=== PATIENT | female | born 1980 | race Caucasian/White ===

== ENCOUNTER → 2016-05-31 | Outpatient (CLI) | payer OTHER ==
[2016-05-31 10:48] LABS: HEMATOCRIT 39.5 % (37.0-47.0); HEMOGLOBIN 13.5 g/dL (12.0-16.0); MEAN CORPUSCULAR HEMOGLOBIN 30.2 PG (27-31); MEAN CORPUSCULAR HGB CONC 34.2 g/dL (33-37); MEAN PLATELET VOLUME 9.4 FL (7.4-12.2); RDW COEFFICIENT OF VARIATION 13.5 % (11.5-14.5); RED BLOOD COUNT 4.47 10^6/uL (4.20-5.40); WHITE BLOOD COUNT 11.33 10^3/uL (4.8-10.8)
== END ==
LOC: LAB 09:31
PROVIDERS: ATTEND Family Medicine
DX: Z36 Encounter for antenatal screening of mother (principal); O99.012 Anemia complicating pregnancy, second trimester; D50.9 Iron deficiency anemia, unspecified; Z3A.28 28 weeks gestation of pregnancy
CPT/HCPCS: 36415; 82728; 82950; 83540; 83550; 84443; 85027

== ENCOUNTER → 2016-07-26 | Outpatient (CLI) | payer OTHER | LOC: MOB LAB 11:27 | PROVIDERS: ATTEND Family Medicine | DX: Z36 Encounter for antenatal screening of mother (principal); Z3A.36 36 weeks gestation of pregnancy | CPT/HCPCS: 87150 ==

== ENCOUNTER 2016-08-16 06:03 | Inpatient (IN) | payer OTHER ==
[~2016-08-16 06:03] MED LIST: CITRIC ACID/SODIUM CITRATE 30 ML CUP PO ONE; CefOXitin Inj 2 GM in Sodium Chloride 0.9% 100 ML IV ONE; Famotidine Inj 20 MG in Normal Saline Flush 10 ML IVP ONE; LIDOCAINE W/ SODIUM BICARB 0.5 ML SYR SUBD PRN; Lactated Ringers 1,000 ML PRIMARY IV ONE; Metoclopramide Inj 10 MG/2 ML VIAL IV ONE; NORMAL SALINE 10 ML SYRINGE FLUSH IVP PRN
[2016-08-16] MEDS ORDERED: Lactated Ringers 1,000 ML PRIMARY IV SCH ×2 (06:15→07:00)
[2016-08-16] MEDS ORDERED: Oxytocin 20 Units + LR 1,000 ML IV SCH ×2 (06:15→09:45)
[2016-08-16] MEDS ORDERED: NORMAL SALINE 10 ML SYRINGE FLUSH IVP PRN ×2 (06:48→09:45)
[2016-08-16] MEDS ORDERED: HYDROmorphone 2 MG/1 ML IVP PRN (06:48)
[2016-08-16] MEDS ORDERED: ONDANSETRON 4 MG/2 ML VIAL IVP PRN ×2 (06:48→09:45)
[2016-08-16] MEDS ORDERED: fentaNYL Inj 100 MCG/2 ML VIAL IVP PRN (06:48)
[2016-08-16] MEDS ORDERED: PROMETHAZINE 25 MG/1 ML VIAL IM PRN (06:48)
[2016-08-16 07:02] LABS: HEMATOCRIT 38.8 % (37.0-47.0); HEMOGLOBIN 13.3 g/dL (12.0-16.0); MEAN CORPUSCULAR HEMOGLOBIN 29.7 PG (27-31); MEAN CORPUSCULAR HGB CONC 34.3 g/dL (33-37); MEAN CORPUSCULAR VOLUME 86.6 FL (81-99); MEAN PLATELET VOLUME 9.5 FL (7.4-12.2); RED BLOOD COUNT 4.48 10^6/uL (4.20-5.40)
[2016-08-16] MEDS ORDERED: Oxytocin 20 Units + LR 1,000 ML IV ONE (07:18)
[2016-08-16] MEDS ORDERED: ePHEDrine Inj 50 MG/ML AMP ONE (07:18)
[2016-08-16] MEDS ORDERED: Lactated Ringers 1,000 ML PRIMARY IV ONE (08:10)
[2016-08-16] MEDS ORDERED: Sodium Chloride 0.9% vial 10 ML ONE (08:26)
[2016-08-16] MEDS ORDERED: PHENYLEPHRINE 10,000 MCG/1 ML VIAL ONE (08:26)
--- NOTE | 2016-08-16 09:16 | OB.OP.NOTE ---
Operative Report Surgeon: Jewell Clancy MD Final Assembler: Erick Bernardo MD Anesthesia Type: Regional Anesthesia Provider: Brenden Kessler CRNA Surgery Date: 08/16/16 Preoperative Diagnosis: Previous section Postoperative Diagnosis: same, delivered. Moderate peritoneal adhesions Procedure: Repeat section Complications: none Estimated Blood Loss (mL): 700 Urine Output (mL): 200 Fluids: 1300 cc of LR Indications: The patient has had 2 previous sections and is not a candidate for a trial of labor after . She is requesting repeat section. Findings: normal male , in cephalic presentation. Light meconium noted at AROM. Description of Procedure: The patient was taken to the operating room where spinal anesthesia was found to be adequate. She was then prepared and draped in the normal sterile fashion in the dorsal supine position with a leftward tilt. A Pfannenstiel skin incision was then made with the scalpel and carried through to the underlying layer of fascia with Bovie. The fascia was incised in the midline and the incision extended laterally with the Bovie. The superior aspect of the fascial incision was then grasped with Enzo clamps, elevated and the underlying rectus muscles dissected off bluntly and with the Bovie. Attention was then turned to the inferior aspect of this incision which in a similar fashion was grasped with Enzo clamps and the rectus muscles dissected off both bluntly and with the Bovie. The rectus muscle was then in the midline, and the peritoneum identified, tented up, and entered in blunt fashion. The peritoneal incision was then extended superiorly and inferiorly with good visualization of the bladder. Adhesions of the peritoneium to the right side of the uterus were noted and reduced with the Bovie, taking care not to injure the bladder. The Emiliano retractor was then inserted and the vesicouterine peritoneum was identified. The lower uterine segment incised in the transverse fashion with the scalpel. The uterine incision was then extended laterally in a blunt fashion. Artificial rupture of membranes was completed with return of light meconium-stained fluid. The 's head was delivered atraumatically. The nose and mouth were suctioned with the bulb suction and the cord clamped and cut. The infant was handed off to the awaiting nurse. Cord gases and cord blood were sent for analysis. The placenta was then removed manually; the uterus exteriorized, and cleared of all clots and debris. The uterine incision was repaired with 0 Vicryl in a running, locked fashion. A second layer of the same suture was used to obtain excellent hemostasis. The peritoneal cavity was then copiously irrigated with warm saline. The uterus was returned to the abdomen. The paracolic gutters were copiously irrigated with warm saline and a second look at the uterine incision continued to reveal excellent hemostasis. The peritoneum was closed with 3-0 Vicryl. The fascia was reapproximated with 0 PDS in a running fashion. The subcutaneous space was irrigated copiously with warm saline and then closed first with 3-0 Vicryl and then more superficially with Insorb absorbable sutures. The skin was reapproximated with Steri-Strips and a Silverlon dressing applied. Fundal massage was completed with no clots in vaginal vault. The patient tolerated the procedure well. Sponge, lap, and needle counts were correct x2. Ancef was given preoperatively less than one hour prior to incision time. The patient was taken to the recovery room in stable condition.
[2016-08-16] MEDS ORDERED: DIPH,PERTUSS,TET(ADACEL) VAC/PF 0.5 ML (Tdap) IM SCH (09:45)
[2016-08-16] MEDS ORDERED: Methylergonovine Tab 0.2 MG TAB PO PRN (09:45)
[2016-08-16] MEDS ORDERED: LANOLIN HPA 40 GM TUBE TOPICAL PRN (09:45)
[2016-08-16] MEDS ORDERED: Famotidine Inj 20 MG in Normal Saline Flush 10 ML IVP PRN (09:45)
[2016-08-16] MEDS ORDERED: Nalbuphine Inj 20 MG/ML Ampule IVP PRN (09:45)
[2016-08-16] MEDS ORDERED: HYDROmorphone 2 MG/1 ML IV PRN (09:45)
[2016-08-16] MEDS ORDERED: diphenhydrAMINE 50 MG/1 ML VIAL IV PRN (09:45)
[2016-08-16] MEDS ORDERED: CALCIUM CARBONATE 500 MG (TUMS) CHEWABLE TABLET PO PRN (09:45)
[2016-08-16] MEDS ORDERED: Naloxone Inj 0.01 MG, Sodium Chloride 0.9% vial 1 ML IVP PRN ×2 (09:45)
[2016-08-16] MEDS ORDERED: METHYLERGONOVINE MALEATE 0.2 MG/1 ML VIAL IM PRN (09:45)
[2016-08-16] MEDS ORDERED: OXYTOCIN 10 UNIT/1 ML IM ONE (09:45)
[2016-08-16] MEDS ORDERED: MISOPROSTOL 200 MCG TABLET RECTAL ONE (09:45)
[2016-08-16] MEDS ORDERED: diphenhydrAMINE 25 MG CAPSULE PO PRN (09:45)
[2016-08-16] MEDS ORDERED: Carboprost Inj 250 MCG/ML AMP IM PRN (09:45)
[2016-08-16] MEDS: oxyCODONE-ACETAMINOPHEN 5-325 TAB PO PRN ×4 (09:59→22:36)
[2016-08-16] MEDS: KETOROLAC 30 MG/1 ML VIAL IVP PRN ×3 (10:00→22:36)
[2016-08-16] MEDS ORDERED: IPRATROPIUM/ALBUTEROL SULFATE 3 ML NEB NEB ONE (11:10)
[2016-08-16] MEDS: D5-LR 1,000 ML PRIMARY IV SCH ×2 (12:59→18:31)
[2016-08-17] MEDS: oxyCODONE-ACETAMINOPHEN 5-325 TAB PO PRN ×6 (02:34→23:56)
[2016-08-17] MEDS: D5-LR 1,000 ML PRIMARY IV SCH ×2 (03:43→15:13)
[2016-08-17] MEDS: KETOROLAC 30 MG/1 ML VIAL IVP PRN ×2 (04:34→12:04)
[2016-08-17 05:37] LABS: HEMATOCRIT 31.5 % (37.0-47.0); HEMOGLOBIN 10.5 g/dL (12.0-16.0); MEAN CORPUSCULAR HEMOGLOBIN 29.5 PG (27-31); MEAN CORPUSCULAR HGB CONC 33.3 g/dL (33-37); MEAN CORPUSCULAR VOLUME 88.5 FL (81-99); MEAN PLATELET VOLUME 9.6 FL (7.4-12.2); RED BLOOD COUNT 3.56 10^6/uL (4.20-5.40)
[2016-08-17] MEDS: Senna/Docusate Tab 1 TAB TAB PO SCH ×2 (08:22→20:28)
[2016-08-17] MEDS: Prenatal Multivitamin Tab 1 TAB TAB PO SCH (08:22)
--- NOTE | 2016-08-17 09:09 | CRNA.PROGR ---
Anesthesia Note Anesthesia Progress Note: Anesthesia Post OP Note Pt is sitting up in bed, nursing her new born. She states that the SAB has completely resolved and she denies any residual issues from the anesthetic. Pain is now well under control. She has been tolerating a regular diet well. Current VS stable. Vital Signs (Last 8 hours) Temp Pulse Resp BP Pulse Ox 08/17/16 09:00 98.2 F 96 18 118/7 99 08/17/16 04:50 97.8 F 85 16 100/53 95
--- NOTE | 2016-08-17 12:08 | OB.PROGRES ---
Subjective Post Op Day: 1 Pain Management: PO Heath Catheter: No Flatus: Yes Diet: Regular Feeding Method: Exculsively Ambulating: Yes Concerns / Additional Information: C/o right shoulder pain that started last noc. Does feel a little better today, just still feels 'crampy.' Does have a lot of uterine cramping with breast feeding. Mild to moderate lochia. Breast feeding going well. Objective - General General Appearance: POSITIVE: No Acute Distress, Cooperative - Cardiovacular Cardiovascular Exam: POSITIVE: RRR, No Murmur Extremities: Negative Melissa's - Bilaterally - Respiratory Respiratory Exam: POSITIVE: Clear to Auscultation - Bilaterally, Breathing Non Labored - Abdomen Bowel Sounds: Present Abdominal Wound Assessment: Silverlone Dressing - Fundus/Lochia/Perineum Uterus Consistency: Firm Uterus Position: POSITIVE: Below Umbilicus Assesstment / Plan (1) Status post repeat low transverse section Current Visit: Yes Status: Acute Assessment / Plan: -routine cares. -very mild post-op anemia--will continue slow release iron at home. -will refer to PT for right shoulder pain, probably referred from air in abd from surgery. -breast feeding well. -rh positive. -possible d/c home in 1-2 days.
--- NOTE | 2016-08-17 15:58 | PTI REPORT ---
Thank you for the referral of Genesis Ledesma. She was seen on 08/17/16 for an inpatient evaluation secondary to right shoulder pain following . SUBJECTIVE: The patient is a 35-year-old female. The patient reports she has never had any right shoulder pain following any of her past three c-sections. She states she noticed it this morning and it feels very excruciating like a sharp stabbing feeling. She denies any radicular type symptoms. PAST MEDICAL HISTORY: Past medical history can be found in the patient's medical record. 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 She was negative for any type of neural tension for the median, ulnar, or musculocutaneous or radial nerve. She reports pain at its worse at 9/10 on the verbal analog scale (0=no pain, 10= worst pain). No differences in sensation. Bilateral upper extremity strength was not formally tested at this time. She was negative for any type of rotator cuff involvement. ASSESSMENT: This patient is having right shoulder pain following which is indicative of trapped air in the abdomen referring pain into the shoulder. Problem List: Right shoulder pain Physical Therapy Goals: To be met by discharge from inpatient: Patient will have decreased subjective level of pain by 25%. Patient will be instructed in home activities to reduce her pain. TREATMENT PLAN: Patient will be seen on a PRN basis for pain relief. INITIAL TREATMENT: Treatment today consisted of the initial evaluation followed by educating the patient on the referral patterns of trapped air following a . Home remedies include application of moist heat as well as getting up and ambulating to help better pass excessive gas. She received an application of moist heat x30 minutes to the right shoulder followed by neuromuscular reeducation in the form of Kinesio tape to help for pain. SUSANA
[2016-08-17] MEDS: IBUPROFEN 800 MG TABLET PO PRN (18:31)
[2016-08-17 22:05] VITALS: RESP 16
[2016-08-18] MEDS: IBUPROFEN 800 MG TABLET PO PRN ×2 (02:59→11:00)
[2016-08-18] MEDS: oxyCODONE-ACETAMINOPHEN 5-325 TAB PO PRN ×3 (03:58→12:06)
[2016-08-18] MEDS: Senna/Docusate Tab 1 TAB TAB PO SCH (08:13)
[2016-08-18] MEDS: Prenatal Multivitamin Tab 1 TAB TAB PO SCH (08:14)
[2016-08-18 08:43] VITALS: TEMP 97.7
--- NOTE | 2016-08-18 08:54 | DI ---
VENOUS DOPPLER ULTRASOUND OF THE RIGHT LOWER EXTREMITY, 08/17/2016 12:26 PM: Clinical History: Right lower trauma knee pain and swelling Previous Exam: None. Technique: 2D real-time imaging is supplemented with color Doppler ultrasound. Compression and augmen tation maneuvers were performed. The long saphenous vein is normal. Reading: No evidence of deep venous thrombosis. ICD9: { } { }
--- NOTE | 2016-08-21 09:28 | DCSUMMARY ---
Hospitalization Summary Admit Date: 08/16/16 Discharge Date: 08/18/16 Primary Diagnosis:: Previous section Primary Surgery and Date: Repeat section, 08/16/16 Delivery Type: Hospital Course: Ms. Ledesma has a h/o previous section x 2, with 1 vaginal delivery with her first child. She is now 39 weeks and is requesting repeat section. / Postop Complications: The pt did very well post-operatively. She did c/o right shoulder pain on POD # 1 and this improved greatly with physical therapy treatment. She also c/o right calf pain on POD #1, her u/s for DVT was read as negative. Otherwise, she had no other issues. Complications: Baby did very well breast feeding. He had normal voids and stools. It was noted , however, on DOL #1, that he would get hypoxic with crying to the high 70s-low 80s. The NICU in [place] was consulted, for details of this conversation and the plan, please see the baby's note. Otherwise, there were no complications. Exam - Vitals Vital Signs: Vital Signs Temperature 97.7 F Temperature Source Oral Pulse Rate [Pulse Oximeter] 110 Pulse Rate 125 Respiratory Rate 16 Blood Pressure [Right Arm] 116/64 Blood Pressure 107/68 Pulse Ox 97 Oxygen Delivery Method Room Air Height [1 of 1] 20.25 in Height 5 ft 1 in Weight 141 lb 0.8 oz - General General Appearance: POSITIVE: No Acute Distress, Cooperative - Head Head Exam: POSITIVE: Normal Inspection - Respiratory Respiratory Exam: POSITIVE: Clear to Auscultation - Bilaterally, Breathing Non Labored - Cardiovascular Cardiovascular Exam: POSITIVE: RRR, No Murmur - GI/Abdominal GI/Abdominal Exam: POSITIVE: Normal Bowel Sounds, Non Tender, Non Distended, Soft - Extremities Extremities Exam: POSITIVE: Normal Inspection, Negative Melissa's sign, +1 Edema - Back Back Exam: POSITIVE: Normal Inspection - Neurological Neurological Exam: POSITIVE: Alert, Oriented x 3, Normal Gait - Psychiatric Psychiatric Exam: POSITIVE: Normal Affect, Normal Mood - Integumentary Integumentary Exam: POSITIVE: Normal Color, Warm, Dry Patient Problems - Patient Problem List (1) Status post repeat low transverse section Status: Acute
== END 2016-08-18 12:15 | disposition home or self-care (01) | DRG 766 ==
LOC: OBOR 06:03 → MED/SURG 09:40 → OBIP 10:12 → UNDODISIN 08-18 12:15
PROVIDERS: ADMIT Family Medicine; ATTEND Family Medicine
PROC: 10D00Z1 Extraction of Products of Conception, Low, Open Approach (ICD-10-PCS; principal; 2016-08-16 08:00)
DX: O34.211 Maternal care for low transverse scar from previous cesarean delivery (principal); N85.8 Other specified noninflammatory disorders of uterus; Z3A.39 39 weeks gestation of pregnancy; Z37.0 Single live birth
CPT/HCPCS: 36415; 81003; 85027; 86850; 86900; 86901; 93971; 94150; 94761; 97010; 97112; 97161; A4216; J1170; J1885; J2370; J2765; J7050; J7120